=== PATIENT | female | born 1935 | race Caucasian/White ===

== ENCOUNTER 2017-08-29 08:46 | Day surgery (SDC) | payer MEDICARE, BC ==
[2017-08-29] MEDS ORDERED: Dexamethasone 4 MG/ML SDV IV ONE (08:47)
[2017-08-29] MEDS ORDERED: Midazolam 1 MG/ML 2 ML SDV IV ONE (08:47)
[2017-08-29] MEDS ORDERED: Phenylephrine 10% Ophth Soln 5 ML Bot EYELF ONE (09:00)
[2017-08-29] MEDS ORDERED: Cataract Ophth Solution EYELF ONE (09:00)
[2017-08-29] MEDS ORDERED: Ondansetron 4 MG/2 ML SDV IVPUSH PRN (09:00)
[2017-08-29] MEDS ORDERED: Phenylephrine 10% Ophth Soln 5 ML Bot EYELF PRN (09:00)
[2017-08-29] MEDS ORDERED: Proparacaine 0.5% Ophth Soln 15 ML Bottle EYELF ONE (09:00)
[2017-08-29] MEDS ORDERED: Acetaminophen 325 MG Tab PO PRN (09:00)
[2017-08-29] MEDS ORDERED: Povidone-Iodine 5% Sterile Ophth Soln 30 ML Bottle EYELF ONE ×2 (09:00→10:12)
[2017-08-29] MEDS ORDERED: Timolol Maleate 0.5% Ophth Soln 5 ML Bottle EYELF ONE (09:00)
[2017-08-29] MEDS ORDERED: Moxifloxacin 0.5% Ophth Soln 3 ML Bottle EYELF ONE (09:00)
[2017-08-29] MEDS ORDERED: Sodium Chloride 0.9% 10 ML Syringe FLUSH PRN (09:00)
[2017-08-29] MEDS ORDERED: Tetracaine HCl/PF 0.5% 4 ML Bottle EYELF ONE (10:10)
[2017-08-29] MEDS ORDERED: Lidocaine 1% 30 ML SDV ONE (10:13)
[2017-08-29] MEDS ORDERED: Vancomycin 500 MG SDV EYELF ONE (10:14)
[2017-08-29] MEDS ORDERED: Dexamethasone/Neomycin/Polymyxin B Ophth Oint 3.5 GM Tube EYELF ONE (10:15)
[2017-08-29] MEDS ORDERED: Apraclonidine 0.5% Ophth Soln 5 ML Bot EYELF ONE (10:15)
[2017-08-29] MEDS ORDERED: Balanced Salt Solution Ophth Irrig 500 ML Bottle IOCULAR ONE (10:16)
[2017-08-29] MEDS ORDERED: Chondroitin Sulfate/Hyaluronate Sodium Ophth Inj 0.75 ML Syringe EYELF ONE (10:17)
--- NOTE | 2017-08-29 11:59 | OR ---
DATE: 08/29/2017 PREOPERATIVE DIAGNOSIS: Visually significant mixed cataract, left eye. POSTOPERATIVE DIAGNOSIS: Visually significant mixed cataract, left eye. PROCEDURE: Extracapsular cataract extraction with intraocular lens implant, left eye. ANESTHESIA: Topical/local MAC. COMPLICATIONS: None. INDICATION: Ms. Bruno was seen in the clinic with complaints of difficulty seeing fine print and a progressive change in vision. Her clinical examination reveals mixed cataract, both nuclear and cortical. Best corrected vision with oncoming light is at the level of 20 unable. I offered cataract surgery; and I explained the risks preoperatively including the potential for infection, retinal detachment, and visual loss. We discussed implant options. She has requested a monofocal implant. OPERATIVE DESCRIPTION: After informed consent was obtained and the risks, benefits, and alternatives were explained, the patient was brought to the operative suite and topical anesthesia was administered. The patient was then prepped and draped in the sterile fashion, and attention was placed on the left eye. A sterile lid speculum was placed into the left eye to allow operative exposure. A full-thickness paracentesis was made in the temporal portion of the operative eye. Preservative-free lidocaine 0.1 mL was injected into the anterior chamber followed by viscoelastic. A full-thickness corneal incision was then made into the anterior chamber. A bent needle cystotome was used to create a small ashok in the anterior capsule. The capsulorrhexis forceps was then used to create a 360-degree curvilinear capsulorrhexis. The nucleus was then removed using a phacoemulsification handpiece, and the remaining cortical material was then removed with irrigation and aspiration handpiece. Following removal of the cortical material, the capsular bag was then inspected and noted to be free of any holes or tears. Viscoelastic was then injected into the capsular bag, and the intraocular lens was inserted into the capsular bag. The viscoelastic material was then removed from both the anterior and posterior chambers and from behind the IOL. The lens and capsular bag were then reinspected. The IOL was well centered and the capsular bag intact. The wound and paracentesis sites were inspected and hydrated with balanced saline solution. Both were found to be self-sealing. The intraocular pressure was assessed digitally and found to be within normal range. A good red reflex was noted at the completion of the procedure. No complications occurred during the operation. At the completion of the procedure, Maxitrol, Voltaren, and Iopidine drops were placed into the operative eye. A sterile eye shield was placed over the operative eye, and the patient was transported to the postoperative recovery area having tolerated the procedure well. Postoperative instructions were given along with a postoperative appointment. The patient was advised to call with any questions or concerns. [facility] /[id number]
== END 2017-08-29 11:20 | disposition home or self-care (01) ==
LOC: DL.SDS 08:46
PROVIDERS: ATTEND Ophthalmology
DX: H25.812 Combined forms of age-related cataract, left eye (principal); I25.10 Atherosclerotic heart disease of native coronary artery without angina pectoris; E11.36 Type 2 diabetes mellitus with diabetic cataract; Z79.899 Other long term (current) drug therapy
CPT/HCPCS: 00142; A9270-GY; J1100; J2250; J3370; J7050; V2632

== ENCOUNTER → 2018-08-21 | Outpatient (CLI) | payer MEDICARE, BC ==
[2018-08-21 09:39] LABS: ANION GAP 14.6; CHLORIDE,CL 104 mmol/L (101-111); SODIUM,NA 138 mmol/L (135-145)
== END ==
LOC: DL.LAB 08:33
PROVIDERS: ATTEND Internal Medicine Hematology & Oncology
DX: C50.111 Malignant neoplasm of central portion of right female breast (principal); D50.8 Other iron deficiency anemias
CPT/HCPCS: 36415; 80053; 82728; 83540; 83550; 85025

== ENCOUNTER → 2018-10-25 | Outpatient (CLI) | payer MEDICARE, BC | LOC: DL.LAB 07:50 | PROVIDERS: ATTEND Internal Medicine Hematology & Oncology | DX: C50.111 Malignant neoplasm of central portion of right female breast (principal); D50.9 Iron deficiency anemia, unspecified | CPT/HCPCS: 36415; 82728; 83540; 83550; 85025 ==

== ENCOUNTER 2019-04-21 10:42 | Inpatient (IN) | payer MEDICARE, BC ==
--- NOTE | 2019-04-21 11:43 | PCM.HP ---
H&P History of Present Illness - General Date of Service: 04/21/19 Admit Problem/Dx: Admission Diagnosis/Problem Admission Diagnosis/Problem UTI, Urinary tract infectious disease Source of Information: Patient, Provider (Kyra Raygoza NP) - History of Present Illness Initial Comments - Free Text/Narative: 84 [id number] lady with a history of diabetes diet-controlled, chronic kidney disease stage III, anemia, idiopathic hypotension, breast cancer The patient has been on chronic diuretics, recently metolazone was added to Lasix Presented to the clinic with complaints of increased weakness, hematuria. Urinary tract infection was suspected The patient was found to have an abnormal UA but also severe hypokalemia She was referred for hospital admission. - Related Data Allergies/Adverse Reactions: Allergies Allergy/AdvReac Type Severity Reaction Status Date / Time No Known Allergies Allergy Verified 04/21/19 11:01 Home Medications: Home Meds Acetaminophen [Tylenol Extra Strength] 500 mg PO ASDIRECTED PRN 07/19/17 [ History] Anastrozole [Arimidex] 1 mg PO DAILY 07/19/17 [History] Ubidecarenone [Coenzyme Q10] 10 mg PO DAILY 07/19/17 [History] Acetaminophen/Diphenhydramine [Tylenol Pm Ex-Strength Caplet] 1 tab PO QPM PRN 04/21/19 [History] Ascorbic Acid 500 mg PO DAILY 04/21/19 [History] Calcium Carb/Vit D3/Minerals [Calcium 600+D Plus Minerals] 1 each PO DAILY 04/21 [History] Fludrocortisone [Florinef] 0.1 mg PO DAILY 04/21/19 [History] Furosemide 20 mg PO DAILY 04/21/19 [History] Potassium Chloride 10 meq PO BID 04/21/19 [History] metOLazone [Metolazone] 2.5 mg PO DAILY 04/21/19 [History] Past Medical History Endocrine/Metabolic History: Reports: Other (See Below) Other Endocrine/Metabolic History: pre diabetic - Past Surgical History Oncologic Surgical History: Reports: Mastectomy, Other (See Below) Other Oncologic Surgeries/Procedures: masectomy of the left breast Social & Family History - Tobacco Use Smoking Status *Q: Never Smoker - Caffeine Use Caffeine Use: Reports: Coffee, Tea - Recreational Drug Use Recreational Drug Use: No H&P Review of Systems - Review of Systems: Review Of Systems: See Below General: Denies: Fever Pulmonary: Denies: Shortness of Breath Cardiovascular: Reports: Edema (Chronic). Denies: Chest Pain Gastrointestinal: Denies: Abdominal Pain Genitourinary: Reports: Dysuria, Hematuria (Started a few days ago) Psychiatric: Reports: Other (per her family she has been more sleepy, tired) Exam - Exam Exam: See Below - Exam General: Alert, Oriented Neck: Supple Lungs: Clear to Auscultation, Normal Respiratory Effort, Rales (Few) Cardiovascular: Regular Rate, Regular Rhythm GI/Abdominal Exam: Normal Bowel Sounds, Soft, Non-Tender Extremities: Pedal Edema (1 + b/l) - Patient Data Lab Results Last 24 hrs: Laboratory studies from were reviewed UA showed glucose 500, trace leukocytes, negative nitrate, more dense 100 RBC, 20-50 WBC, moderate bacteria Urine culture in process B UN 24, creatinine 1.2, bicarbonate 33, glucose 404, potassium 2.8 Liver enzymes are normal White blood cell count 8.6, hemoglobin 14.6, plt 218 - Problem List (1) Urinary tract infection SNOMED Code(s): 72456411 ICD Code: N39.0 - URINARY TRACT INFECTION, SITE NOT SPECIFIED Status: Acute Current Visit: Yes (2) Hematuria SNOMED Code(s): 27609452 ICD Code: R31.9 - HEMATURIA, UNSPECIFIED Status: Acute Current Visit: Yes (3) Diabetes SNOMED Code(s): 07714686 ICD Code: E11.9 - TYPE 2 DIABETES MELLITUS WITHOUT COMPLICATIONS Status: Acute Current Visit: Yes (4) Acute encephalopathy SNOMED Code(s): 34129786, 887872507 ICD Code: G93.40 - ENCEPHALOPATHY, UNSPECIFIED Status: Acute Current Visit: Yes (5) CKD (chronic kidney disease) SNOMED Code(s): 989294068 ICD Code: N18.9 - CHRONIC KIDNEY DISEASE, UNSPECIFIED Status: Acute Current Visit: Yes (6) Hypokalemia SNOMED Code(s): 20388432 ICD Code: E87.6 - HYPOKALEMIA Status: Acute Current Visit: Yes Problem List Initiated/Reviewed/Updated: Yes Orders Last 24hrs: Active Orders 24 hr Category Date Time Status Admission Diagnosis [ADT] Routine ADT 04/21/19 10:50 Ordered Admission Status [Patient Status] [ADT] Routine ADT 04/21/19 10:51 Active Assessment/Plan Comment:: Presented with weakness, sleepiness. Noted to have hematuria, severe hypokalemia. Dehydration likely secondary to elevated blood sugars Will hydrate well Severe hypokalemia This is likely secondary to diuretics We will give IV and oral replacement Recheck magnesium, phosphorus as well in the morning Uncontrolled diabetes Will hydrate well Give insulin per supplemental scale Hematuria Likely secondary to urinary tract infection Urine culture is pending from If not cleared with a few days of antibiotic follow up with urology Chronic kidney disease stage III Follow electrolytes and renal function Continue diuretics Increase home potassium supplement Compression stocking to lower extremities for edema Idiopathic Hypotension On the Florinef Continue Acute encephalopathy The patient was noted to be more sleepy This is likely secondary to dehydration, hyperglycemia, urinary tract infection Well monitor DVT prophylaxis with subcutaneous heparin
[2019-04-21] MEDS ORDERED: Ondansetron 4 MG Tab.DIS PO PRN (11:53)
[2019-04-21] MEDS ORDERED: Sodium Chloride 0.9% 10 ML Syringe FLUSH PRN (11:53)
[2019-04-21] MEDS ORDERED: Acetaminophen 325 MG Tab PO PRN (11:53)
[2019-04-21] MEDS ORDERED: Temazepam 15 MG Cap PO PRN (11:53)
[2019-04-21] MEDS: cefTRIAXone 1 GM in Sodium Chloride 0.9% 50 ML IV SCH (13:06)
[2019-04-21] MEDS: Sodium Chloride 0.9% 1,000 ML IV SCH (13:09)
[2019-04-21] MEDS: Potassium Chloride 10 MEQ in Premix Bag 1 BAG IV SCH ×3 (13:58→16:53)
[2019-04-21] MEDS ORDERED: ZOLPIDEM 5 MG PO PRN (16:41)
[2019-04-21] MEDS: Insulin Lispro 100 Units/ML 3 ML Vial SUBCUT SCH ×2 (19:09→21:39)
[2019-04-21] MEDS: Potassium Chloride 10 MEQ Tab.ER PO SCH (21:39)
[2019-04-22 06:34] LABS: ANION GAP 11.7; CHLORIDE,CL 101 mmol/L (101-111); SODIUM,NA 139 mmol/L (135-145)
[2019-04-22] MEDS: Insulin Lispro 100 Units/ML 3 ML Vial SUBCUT SCH ×4 (08:26→22:04)
[2019-04-22] MEDS: Sodium Chloride 0.9% 1,000 ML IV SCH (08:27)
[2019-04-22] MEDS ORDERED: UBIDECARENONE 10 MG PO SCH (09:00)
[2019-04-22] MEDS: Heparin Sodium 5,000 Units/ML Vial SUBCUT SCH ×4 (09:01→22:05)
[2019-04-22] MEDS: Furosemide 20 MG Tab PO SCH (09:02)
[2019-04-22] MEDS: Fludrocortisone 0.1 MG Tab PO SCH (09:02)
[2019-04-22] MEDS: Potassium Chloride 10 MEQ Tab.ER PO SCH ×2 (09:02→22:05)
[2019-04-22] MEDS: Calcium Carbonate/Vitamin D3 1250 MG-200 Unit Tab PO SCH (09:02)
[2019-04-22] MEDS: Ascorbic Acid 500 MG Tab PO SCH (09:02)
[2019-04-22] MEDS: Metolazone 2.5 MG Tab PO SCH (09:09)
[2019-04-22] MEDS: Potassium Chloride 10 MEQ in Premix Bag 1 BAG IV SCH ×6 (09:45→21:05)
--- NOTE | 2019-04-22 12:12 | PCM.PN ---
- General Info Date of Service: 04/22/19 Admission Dx/Problem (Free Text): Admission Diagnosis/Problem Admission Diagnosis/Problem UTI, Urinary tract infectious disease Subjective Update: feeling ok no complaints no sob/no cp not lethargic - Review of Systems General: Denies: Fever, Weakness HEENT: Reports: No Symptoms Pulmonary: Denies: Shortness of Breath Cardiovascular: Reports: Edema. Denies: Chest Pain Gastrointestinal: Denies: Abdominal Pain Genitourinary: Denies: Dysuria - Patient Data Vitals - Most Recent: Last Vital Signs Temp 36.9 C 04/22/19 11:31 Pulse 93 04/22/19 11:31 Resp 16 04/22/19 11:31 BP 112/61 04/22/19 11:31 Pulse Ox 94 L 04/22/19 11:31 Weight - Most Recent: 72.212 kg I&O - Last 24 Hours: Intake & Output 04/21/19 04/22/19 04/22/19 22:59 06:59 14:59 Intake Total 790 1350 600 Output Total 100 Balance 790 1250 600 Lab Results Last 24 Hours: Laboratory Results - last 24 hr 04/21/19 04/22/19 04/22/19 Range/Units 17:42 05:27 05:27 WBC 7.2 (5.0-10.0) 10^3/uL RBC 4.54 (4.2-5.4) 10^6/uL Hgb 13.5 D (12.0-16.0) g/dL Hct 40.6 (37.0-47.0) % MCV 89.4 (80-100) fL MCH 29.7 (27.0-34.0) pg MCHC 33.3 (33.0-35.0) g/dL Plt Count 210 (150-450) 10^3/uL Neut % (Auto) 53.0 (42.2-75.2) % Lymph % (Auto) 29.2 (20.5-50.1) % Green % (Auto) 13.2 H (2-8) % Eos % (Auto) 3.9 H (1.0-3.0) % Baso % (Auto) 0.7 (0.0-1.0) % Sodium 139 (135-145) mmol/L Potassium 2.7 L (3.6-5.0) mmol/L Chloride 101 (101-111) mmol/L Carbon Dioxide 29.0 (21.0-31.0) mmol/L Anion Gap 11.7 BUN 15 (7-18) mg/dL Creatinine 0.7 (0.6-1.3) mg/dL Est Cr Clr Drug Dosing 50.37 mL/min Estimated GFR (MDRD) > 60 Glucose 232 H (74-105) mg/dL POC Glucose 266 H (83-110) mg/dl Calcium 8.4 (8.4-10.2) mg/dl Phosphorus 2.5 (2.5-4.6) mg/dL Magnesium 1.6 L (1.8-2.5) mg/dL 04/22/19 04/22/19 Range/Units 07:51 11:41 WBC (5.0-10.0) 10^3/uL RBC (4.2-5.4) 10^6/uL Hgb (12.0-16.0) g/dL Hct (37.0-47.0) % MCV (80-100) fL MCH (27.0-34.0) pg MCHC (33.0-35.0) g/dL Plt Count (150-450) 10^3/uL Neut % (Auto) (42.2-75.2) % Lymph % (Auto) (20.5-50.1) % Green % (Auto) (2-8) % Eos % (Auto) (1.0-3.0) % Baso % (Auto) (0.0-1.0) % Sodium (135-145) mmol/L Potassium (3.6-5.0) mmol/L Chloride (101-111) mmol/L Carbon Dioxide (21.0-31.0) mmol/L Anion Gap BUN (7-18) mg/dL Creatinine (0.6-1.3) mg/dL Est Cr Clr Drug Dosing mL/min Estimated GFR (MDRD) Glucose (74-105) mg/dL POC Glucose 214 H 281 H (83-110) mg/dl Calcium (8.4-10.2) mg/dl Phosphorus (2.5-4.6) mg/dL Magnesium (1.8-2.5) mg/dL Xu Results Last 24 Hours: Microbiology 04/21/19 16:13 Urine Culture - Preliminary Urine, Clean Catch Med Orders - Current: Current Medications Acetaminophen (Tylenol) 650 mg PO Q4H PRN PRN Reason: Pain (Mild 1-3)/fever Ascorbic Acid (Vitamin C) 500 mg PO DAILY [facility] Last Admin: 04/22/19 09:02 Dose: 500 mg Calcium Carbonate (Calcium Carbonate/Vitamin D 1250 Mg-200 Unit) 1 tab PO DAILY [facility] Last Admin: 04/22/19 09:02 Dose: 1 tab Fludrocortisone Acetate (Florinef) 0.1 mg PO DAILY [facility] Last Admin: 04/22/19 09:02 Dose: 0.1 mg Furosemide (Lasix) 20 mg PO DAILY [facility] Last Admin: 04/22/19 09:02 Dose: 20 mg Heparin Sodium (Porcine) (Heparin Sodium) 5,000 units SUBCUT Q8HR [facility] Last Admin: 04/22/19 09:02 Dose: Not Given Ceftriaxone Sodium 1 gm/ (Sodium Chloride) 50 mls @ 100 mls/hr IV Q24H [facility] Last Admin: 04/21/19 13:06 Dose: 100 mls/hr Potassium Chloride 10 meq/ (Premix) 100 mls @ 100 mls/hr IV Q2H [facility] Stop: 04/22/19 20:59 Last Admin: 04/22/19 11:39 Dose: 50 mls/hr Potassium Chloride/Sodium Chloride (Normal Saline With 20 Meq Kcl) 1,000 mls @ 75 mls/hr IV ASDIRECTED [facility] Insulin Human Lispro (Humalog) 0 unit SUBCUT ACBED [facility]; Protocol Last Admin: 04/22/19 08:26 Dose: 2 unit Magnesium Oxide (Magnesium Oxide) 250 mg PO BIDM [facility] Stop: 04/22/19 18:01 Last Admin: 04/22/19 09:45 Dose: 250 mg Metolazone (Zaroxolyn) 2.5 mg PO Q48H [facility] Last Admin: 04/22/19 09:09 Dose: 2.5 mg Ondansetron HCl (Zofran Odt) 4 mg PO Q4H PRN PRN Reason: nausea, able to take PO (Anastrozole [ Arimidex] 1 Mg)*Pt Own Med* 0 each PO DAILY [facility] Last Admin: 04/22/19 09:03 Dose: 1 each Zolpidem 5 Mg Tab * (Pt Own Med*) 0 each PO BEDTIME PRN PRN Reason: FOR SLEEP Potassium Chloride (Klor-Con 10) 20 meq PO BID [facility] Last Admin: 04/22/19 09:02 Dose: 20 meq Sodium Chloride (Saline Flush) 10 ml FLUSH ASDIRECTED PRN PRN Reason: Keep Vein Open Discontinued Medications Potassium Chloride 10 meq/ (Premix) 100 mls @ 100 mls/hr IV Q2H [facility] Stop: 04/21/19 16:59 Last Infusion: 04/21/19 18:20 Dose: Infused Sodium Chloride (Normal Saline) 1,000 mls @ 75 mls/hr IV ASDIRECTED [facility] Last Admin: 04/22/19 08:27 Dose: 75 mls/hr Non-Formulary Medication (Acetaminophen/Diphenhydramine [Tylenol Pm Ex-Strength Caplet]) 1 tab PO QPM PRN PRN Reason: Sleep Non-Formulary Medication (Ubidecarenone [Coenzyme Q10]) 10 mg PO DAILY [facility] Last Admin: 04/22/19 11:31 Dose: Not Given Temazepam (Restoril) 15 mg PO BEDTIME PRN PRN Reason: Sleep - Exam Quality Assessment: No: Supplemental Oxygen General: Alert, Oriented Neck: Supple Lungs: Clear to Auscultation, Normal Respiratory Effort Cardiovascular: Regular Rate, Regular Rhythm GI/Abdominal Exam: Normal Bowel Sounds, Soft, Non-Tender Extremities: Pedal Edema Sepsis Event Note - Evaluation Sepsis Screening Result: No Definite Risk - Focused Exam Vital Signs: Vital Signs Temp Pulse Resp BP Pulse Ox 04/22/19 11:31 36.9 C 93 16 112/61 94 L 04/22/19 07:54 37.3 C 85 16 113/67 98 04/22/19 04:00 37.6 C 97 20 124/65 92 L Date Exam was Performed: 04/22/19 Time Exam was Performed: 12:12 - Problem List & Annotations (1) Urinary tract infection SNOMED Code(s): 13268645 Code(s): N39.0 - URINARY TRACT INFECTION, SITE NOT SPECIFIED Status: Acute Current Visit: Yes (2) Hematuria SNOMED Code(s): 42809797 Code(s): R31.9 - HEMATURIA, UNSPECIFIED Status: Acute Current Visit: Yes (3) Diabetes SNOMED Code(s): 77112678 Code(s): E11.9 - TYPE 2 DIABETES MELLITUS WITHOUT COMPLICATIONS Status: Acute Current Visit: Yes (4) Acute encephalopathy SNOMED Code(s): 56625095, 666155635 Code(s): G93.40 - ENCEPHALOPATHY, UNSPECIFIED Status: Acute Current Visit : Yes (5) CKD (chronic kidney disease) SNOMED Code(s): 539872055 Code(s): N18.9 - CHRONIC KIDNEY DISEASE, UNSPECIFIED Status: Acute Current Visit: Yes (6) Hypokalemia SNOMED Code(s): 62973005 Code(s): E87.6 - HYPOKALEMIA Status: Acute Current Visit: Yes - Problem List Review Problem List Initiated/Reviewed/Updated: Yes - My Orders Last 24 Hours: My Active Orders 04/21/19 11:46 Glucose [Blood Glucose Check, Bedside] [RC] QIDACANDBED 04/21/19 11:53 Oxygen Therapy [RC] PRN Up With Assistance [RC] ASDIRECTED VTE/DVT Education [RC] PER UNIT ROUTINE Vital Signs [RC] 00,04,08,12,16,20 Acetaminophen [Tylenol] 650 mg PO Q4H PRN Ondansetron [Zofran ODT] 4 mg PO Q4H PRN Sodium Chloride 0.9% [Saline Flush] 10 ml FLUSH ASDIRECTED PRN Antiembolic Hose [OM.PC] Per Unit Routine Peripheral IV Insertion Adult [OM.PC] Routine Resuscitation Status Routine 04/21/19 11:54 Antiembolic Devices [RC] Peripheral IV Care [RC] 04/21/19 13:00 cefTRIAXone [Rocephin] 1 gm Sodium Chloride 0.9% [Normal Saline] 50 ml IV Q24H 04/21/19 14:00 Heparin Sodium 5,000 units SUBCUT Q8HR 04/21/19 16:00 Insulin Lispro [HumaLOG] See Protocol SUBCUT ACBED 04/21/19 16:13 CULTURE URINE [RM] Routine 04/21/19 16:41 Patient's Own Medication [Ptom] 0 each PO BEDTIME PRN 04/21/19 21:00 Potassium Chloride [Klor-Con 10] 20 meq PO BID 04/21/19 Lunch Consistent Carbohydrate Diet [DIET] 04/22/19 09:00 Ascorbic Acid [Vitamin C] 500 mg PO DAILY Calcium Carbonate/Vitamin D3 [Calcium Carbonate/Vitamin D 1250 MG-200 Unit] 1 tab PO DAILY Fludrocortisone [Florinef] 0.1 mg PO DAILY Furosemide [Lasix] 20 mg PO DAILY Patient's Own Medication [Ptom] 0 each PO DAILY metOLazone [Zaroxolyn] 2.5 mg PO Q48H 04/22/19 09:15 NS + KCl 20mEq/L [Normal Saline with 20 mEq KCl] 1,000 ml IV ASDIRECTED 04/22/19 09:30 Magnesium Oxide 250 mg PO BIDM 04/22/19 10:00 Potassium Chloride [KCl 10 MEQ in Water 100 ML] 10 meq Premix Bag 1 bag IV Q2H 04/22/19 12:06 OT Evaluation and Treatment [CONS] Routine PT Evaluation and Treatment [CONS] Routine 04/23/19 05:15 BASIC METABOLIC PANEL,BMP [CHEM] AM CBC WITH AUTO DIFF [HEME] AM - Plan Plan:: Presented with weakness, sleepiness. Noted to have hematuria, severe hypokalemia. Dehydration likely secondary to elevated blood sugars improved cont hydration at a lower rate Severe hypokalemia This is likely secondary to diuretics, hyperglycemia and insulin We will give IV and oral replacement replace mg Recheck magnesium, phosphorus as well in the morning Uncontrolled diabetes Will hydrate well Give insulin per supplemental scale Hematuria Likely secondary to urinary tract infection Urine culture: gram neg treated with ceftriaxone If not cleared with a few days of antibiotic follow up with urology Chronic kidney disease stage III Follow electrolytes and renal function Continue diuretics Increased home potassium supplement PO Compression stocking to lower extremities for edema Idiopathic Hypotension On the Florinef Continue Acute encephalopathy The patient was noted to be more sleepy improved This was likely secondary to dehydration, hyperglycemia, urinary tract infection Well monitor DVT prophylaxis with subcutaneous heparin
[2019-04-22] MEDS: cefTRIAXone 1 GM in Sodium Chloride 0.9% 50 ML IV SCH (13:42)
[2019-04-22] MEDS: NS + KCl 20mEq/L 1,000 ML IV SCH (14:38)
[2019-04-23] MEDS: NS + KCl 20mEq/L 1,000 ML IV SCH ×2 (03:24→17:17)
[2019-04-23] MEDS: Heparin Sodium 5,000 Units/ML Vial SUBCUT SCH ×3 (06:20→21:14)
[2019-04-23 07:16] LABS: ANION GAP 10.8; CHLORIDE,CL 102 mmol/L (101-111); SODIUM,NA 137 mmol/L (135-145)
[2019-04-23] MEDS: Ascorbic Acid 500 MG Tab PO SCH (08:17)
[2019-04-23] MEDS: Potassium Chloride 10 MEQ Tab.ER PO SCH ×2 (08:17→21:16)
[2019-04-23] MEDS: Calcium Carbonate/Vitamin D3 1250 MG-200 Unit Tab PO SCH (08:17)
[2019-04-23] MEDS: Furosemide 20 MG Tab PO SCH (08:17)
[2019-04-23] MEDS: Insulin Lispro 100 Units/ML 3 ML Vial SUBCUT SCH ×4 (08:17→21:14)
[2019-04-23] MEDS: Fludrocortisone 0.1 MG Tab PO SCH (08:17)
[2019-04-23] MEDS: cefTRIAXone 1 GM in Sodium Chloride 0.9% 50 ML IV SCH (13:01)
--- NOTE | 2019-04-23 16:32 | PN ---
DATE: 04/23/2019 SUBJECTIVE: Ms. Kylie Bruno is an 84-year-old female with medical history significant for dementia, diet-controlled diabetes, chronic kidney disease, anemia, and history of breast cancer in the past; admitted to the hospital with complaints of increasing weakness, tiredness, and noted to have urinary tract infection along with severe hypokalemia. For the last 24 hours, the patient continued to receive potassium chloride supplement. She remained stable but secondary to dementia, she is not completely oriented. She is awake and alert. REVIEW OF SYSTEMS: Difficult to obtain. PHYSICAL EXAMINATION: Vital Signs: Temperature of 99.1, pulse of 78, blood pressure 103/47, respiratory rate of 20, and saturating 93%. General Appearance: The patient is well oriented to time, place, and person. Follows commands spontaneously. Cardiovascular System: S1, S2 heard with normal intensity. No gallops. Respiratory: Clear to auscultation bilaterally. No wheeze. No crepitations. Abdomen: Soft. Bowel sounds positive. Nontender. No rigidity. Extremities: No edema in bilateral lower extremities. LABORATORY DATA: Reviewed. Sodium 137, potassium 3.8, chloride 102, bicarbonate 28, BUN 15, and creatinine 0.7. MEDICATIONS: Reviewed. Continue the same. Continue Lasix 20 mg daily, heparin 5000 subcutaneous q.8 hourly, Humalog supplemental scale, metolazone 2.5 mg every 48 hours, and potassium chloride 20 mEq twice a day. ASSESSMENT: 1. Hypokalemia, improved. 2. Dehydration, improved. 3. Type 2 diabetes mellitus, diet controlled. 4. Urinary tract infection. 5. Chronic kidney disease. PLAN: 1. Hypokalemia. The patient's potassium is much improved at this time. She is given oral and IV potassium chloride. We will recheck a basic metabolic panel in a.m. 2. Possible urinary tract infection. The patient is noted to have E. coli in the urine culture report, sensitive to ceftriaxone. She is currently on ceftriaxone 1 g daily. Continue the same. 3. Dementia. The patient has underlying dementia. She is unable to be discharged back to the assisted living facility. She would need intermediate placement. 4. DVT prophylaxis. Continue with heparin for DVT prophylaxis. [facility] /[id number]
[2019-04-24] MEDS: Heparin Sodium 5,000 Units/ML Vial SUBCUT SCH (05:38)
[2019-04-24] MEDS: NS + KCl 20mEq/L 1,000 ML IV SCH (05:55)
[2019-04-24] MEDS: Fludrocortisone 0.1 MG Tab PO SCH (09:11)
[2019-04-24] MEDS: Ascorbic Acid 500 MG Tab PO SCH (09:11)
[2019-04-24] MEDS: Furosemide 20 MG Tab PO SCH (09:11)
[2019-04-24] MEDS: Calcium Carbonate/Vitamin D3 1250 MG-200 Unit Tab PO SCH (09:11)
[2019-04-24] MEDS: Insulin Lispro 100 Units/ML 3 ML Vial SUBCUT SCH (09:11)
[2019-04-24] MEDS: Potassium Chloride 10 MEQ Tab.ER PO SCH (09:11)
[2019-04-24] MEDS: Metolazone 2.5 MG Tab PO SCH (09:15)
--- NOTE | 2019-04-24 20:12 | DISCH ---
ADMITTING DIAGNOSES: 1. Severe hypokalemia. 2. Urinary tract infection. 3. Dehydration. 4. Type 2 diabetes mellitus, uncontrolled. 5. Mild hematuria. DISCHARGE DIAGNOSES: 1. Severe hypokalemia, resolved. 2. Urinary tract infection with E coli, sensitive to ciprofloxacin, discharged on oral ciprofloxacin. 3. Dehydration, resolved with IV fluids. 4. Hematuria, resolved, mainly from her underlying urinary tract infection. 5. Chronic kidney disease, remains stable. HISTORY OF PRESENTING ILLNESS: Mrs. Kylie Bruno is an 84-year-old female with medical history significant for hypertension, hyperlipidemia, diet- controlled diabetes, chronic kidney disease, anemia, history of breast cancer in the past, admitted with complaints of increasing weakness, tiredness, noted to have urinary tract infection along with severe hypokalemia. The patient was noted to have a potassium of 2.7 at the time of admission. She was given IV and oral potassium chloride after which her potassium improved to 3.8. She will continue with oral potassium chloride. At home, she is noted to be on diuretics with Lasix and metolazone which could have led to this hypokalemia. She will continue the oral potassium chloride. She also noted to have urinary tract infection as per urinalysis. Urine culture grew E coli, sensitive to ciprofloxacin. She was treated with IV antibiotics on this admission, later switched to oral ciprofloxacin for 1 more week at the time of discharge. The patient has underlying dementia, so [facility]. She will continue with PT/OT [facility] the [facility]. She is discharged home in stable condition. DISCHARGE MEDICATIONS: Include Tylenol Extra Strength 500 mg as needed for pain and fever, anastrazole 1 mg daily, ascorbic acid 500 mg daily, calcium carbonate with vitamin D 1 tablet daily, ciprofloxacin 500 mg twice a day, Florinef 0.1 mg daily, Lasix 20 mg daily, potassium chloride 10 mEq twice a day, Coenzyme Q10 10 mg daily, metolazone 2.5 mg every other day, ciprofloxacin 500 mg twice a day for 1 week. PHYSICAL EXAMINATION: Vital Signs: On day of discharge, temperature of 98.7, pulse of 92, blood pressure 120/66, respiratory rate of 20, saturating at 97%. General Appearance: The patient is awake and alert. Follows commands spontaneously. Cardiovascular System: S1, S2 heard with normal intensity. No gallops. Respiratory System: Clear to auscultation bilaterally. No wheeze. No crepitations. Abdomen: Soft. Bowel sounds positive. Nontender. No rigidity. Extremities: No edema in bilateral lower extremities. CONDITION ON ADMISSION: Poor. CONDITION ON DISCHARGE: Stable. DISPOSITION: Discharged to [facility]. DIET: Cardiac healthy diet and consistent carbohydrate diet. ACTIVITY: As tolerated. FOLLOWUP: Follow with primary care physician in the next 1 week of time. [facility] /[id number]
== END 2019-04-24 10:36 | DRG 690 ==
LOC: UNDOADMIN 10:42 → DL.MS 10:42
PROVIDERS: ADMIT Internal Medicine; ATTEND Internal Medicine
DX: N39.0 Urinary tract infection, site not specified (principal); G93.49 Other encephalopathy; E87.6 Hypokalemia; B96.20 Unspecified Escherichia coli [E. coli] as the cause of diseases classified elsewhere; F03.90 Unspecified dementia, unspecified severity, without behavioral disturbance, psychotic disturbance, mood disturbance, and anxiety; E86.0 Dehydration; R31.9 Hematuria, unspecified; I12.9 Hypertensive chronic kidney disease with stage 1 through stage 4 chronic kidney disease, or unspecified chronic kidney disease; N18.3 Chronic kidney disease, stage 3 (moderate); E11.22 Type 2 diabetes mellitus with diabetic chronic kidney disease; D64.9 Anemia, unspecified; I95.0 Idiopathic hypotension; Z79.899 Other long term (current) drug therapy; Z85.3 Personal history of malignant neoplasm of breast; Z90.12 Acquired absence of left breast and nipple
CPT/HCPCS: 36415; 80048; 82962; 83735; 84100; 85025; 87086; 87088; 87186; 97162-GP; 97165-GO; A9270-GY; J0696; J1644; J1815; J3480; J7030; J7050